=== PATIENT | male | born 1955 | race American Indian/Alaskan Native ===

== ENCOUNTER 2017-03-06 10:01 | Observation (INO) | payer MEDICARE ==
[~2017-03-06 10:01] MED LIST: OMNIPAQUE 300 MG/50 ML (CATH LAB) IV ONE
[2017-03-06] MEDS ORDERED: DIPRIVAN 10 MG/ML IV ONE ×2 (10:38→12:50)
[2017-03-06] MEDS ORDERED: ROBINUL ONE (11:04)
[2017-03-06] MEDS ORDERED: VERSED ONE (11:18)
[2017-03-06] MEDS ORDERED: PEPCID ONE (11:19)
[2017-03-06] MEDS ORDERED: NACL 0.9% 1000 ML 1,000 ML ONE ×2 (11:20→12:49)
--- NOTE | 2017-03-06 11:20 | Anesthesia Consultation ---
Anesthesia Consult and Med Hx Date of service: 03/06/17 - Airway Anesthetic Teeth Evaluation: Poor (very poor dentition, front lower many loose teeth) ROM Head & Neck: Inadequate Mental/Hyoid Distance: Adequate Mallampati Class: Class II Intubation Access Assessment: Probably Good - Pulmonary Exam CTA: Yes - Cardiac Exam Cardiac Exam: RRR - Pre-Operative Health Status ASA Pre-Surgery Classification: ASA3 Proposed Anesthetic Plan: General - Pulmonary Hx Smoking: Yes COPD: Yes Hx Sleep Apnea: No - Cardiovascular System Hx Hypertension: No Hx Peripheral Vascular Disease: Yes - Central Nervous System Hx Psychiatric Problems: Yes (depression) - Gastrointestinal Hx Gastroesophageal Reflux Disease: No - Endocrine Hx Renal Disease: No Hx Insulin Dependent Diabetes: No - Hematic Hx Anemia: No Hx Sickle Cell Disease: No - Other Systems Hx Alcohol Use: No Hx Substance Use: Yes (marijuana every other day) Hx Cancer: Yes (prostate) Hx Obesity: No - Additional Comments Anesthesia Medical History Comments: Patient is aware of the possibility of loose teeth being dislodged. Erectile dysfunction.
--- NOTE | 2017-03-06 11:20 | Anesthesia Day of Surgery ---
Anesthesia Day of Surgery - Day of Surgery Patient Examined: Yes Patient H&P Reviewed: Yes Patient is NPO: Yes
[2017-03-06] MEDS ORDERED: PEPCID PO NR (11:22)
[2017-03-06] MEDS ORDERED: VERSED IV NR (11:22)
[2017-03-06] MEDS ORDERED: ANCEF/STERILE WATER 2 GM/20 ML 2 GM/20 ML SYRINGE IV NR (12:00)
[2017-03-06] MEDS ORDERED: NACL 0.9% 1000 ML 1,000 ML IV SCH (12:00)
[2017-03-06] MEDS ORDERED: DECADRON ONE (12:22)
[2017-03-06] MEDS ORDERED: ZOFRAN ONE (12:22)
[2017-03-06] MEDS ORDERED: NEO SYNEPHRINE ONE (12:33)
[2017-03-06] MEDS ORDERED: NACL 0.9% 100 ML ONE (12:33)
[2017-03-06] MEDS ORDERED: DILAUDID ONE (12:53)
[2017-03-06] MEDS ORDERED: NORMODYNE IV ONE (12:54)
[2017-03-06] MEDS ORDERED: METHYLENE BLUE ONE (12:54)
[2017-03-06] MEDS ORDERED: PROAIR IH ONE (12:57)
[2017-03-06] MEDS ORDERED: LASIX ONE ×2 (13:21)
[2017-03-06] MEDS ORDERED: PROVENTIL IH ONE ×2 (13:27→14:55)
[2017-03-06] MEDS ORDERED: BREVIBLOC IV ONE (13:30)
[2017-03-06] MEDS ORDERED: NACL ONE (13:37)
--- NOTE | 2017-03-06 15:53 | Post Operative Note ---
Date of procedure: 03/06/17 Pre-op diagnosis: heme and l ureteral stones Post-op diagnosis: same Findings: very thick bladder wall very large prostate Procedure: cysto attempted stent Anesthesia: GETA Surgeon: SOLOMON BUI Estimated blood loss: minimal Pathology: none Condition: stable Disposition: PACU
[2017-03-06] MEDS ORDERED: ZOFRAN IV PRN (15:54)
[2017-03-06] MEDS ORDERED: AMBIEN PO PRN (15:54)
--- NOTE | 2017-03-06 16:09 | Operative Report ---
PREOPERATIVE DIAGNOSES: Hematuria, renal stones, elevated PSA, bladder outlet obstruction. POSTOPERATIVE DIAGNOSES: Hematuria, renal stones, elevated PSA, bladder outlet obstruction. PROCEDURE: Cystoscopy, attempted stenting, left side. SURGEON: Osman Ballard MD ANESTHESIA: General. FINDINGS: This is a gentleman with obstructing stone, elevated PSA, poorly compliant, previous prostate biopsies with hematuria, and left hydronephrosis, now presents for treatment. DESCRIPTION OF PROCEDURE: The patient was brought to the operating room and placed on the operating table. Following induction of anesthesia, placed in lithotomy position, prepped and draped in usual sterile fashion. Cystourethroscopy showed a very large median bar. Upon entering the bladder, there was diffuse oozing from the prostatic varices, could not see the trigone well, with very thickened bladder wall, very thickened trabeculation and cellules. We could not see the orifice, could not get a catheter in the orifice. We gave him blue, but nothing came out. The patient tolerated the procedure well. We decided we did not want to traumatize the prostate anymore. We did not do any biopsy. There were no obvious masses, just very inflamed bladder and thickened trabeculation. He will go for a CT scan and I suspect he will need a percutaneous nephrostomy. JOB# [id number] VANGIE/MELVIN
--- NOTE | 2017-03-06 16:17 | Cat Scan Report ---
CT ABDOMEN AND PELVIS WITHOUT CONTRAST INDICATION: Postop. COMPARISON: None similar. FINDINGS: Noncontrast abdomen and pelvis CT performed. LUNG BASES: Mild bibasilar atelectasis. Air-filled distal esophageal wall prominence, not excluded for gastroesophageal reflux and/or hiatal hernia, amongst others. ABDOMEN: Please note that sensitivity to detect small visceral lesions is limited due to the absence of intravenous or oral contrast. However, severe left and moderate right hydronephrosis and hydroureter noted with maximum renal pelvis diameter of approximately 8.5 cm on the left and 3.8 cm on the right as on axial image 59, series 2. Bilateral mid ureteral caliber also approximately 1.5 cm as on axial image 106, amongst others, extending into the pelvis. Couple tiny right intrarenal calculi may be noted as on axial image 61 and some at the upper pole. Grossly unremarkable unenhanced liver, spleen, gallbladder, pancreas, adrenals, nonaneurysmal abdominal aorta with atherosclerotic calcifications and IVC. Nonopacified GI tract evaluation limited, though grossly nonobstructive. Mild colonic stool. Few descending colon diverticula. PELVIS: Urinary bladder decompressed by an indwelling Segura catheter with some intrinsic air and contrast from the cystogram. Diffuse extensive urinary bladder wall thickening, though may in part be due to suboptimal distention. Soft tissue at the bladder base may be related to an enlarged prostate. Few small pelvic phleboliths. Multiple left distal ureteral calculi noted, individually measuring to the order of 7-8 mm, though their aggregated measurement is 1.5 x 1.2 cm, axial image 130, series 2. Few similar further distal calculi at the left ureterovesical junction also noted, measuring approximately 1 x 0.5 cm, axial image 136 and approximately 0.8 cm, axial image 141. Unremarkable rectosigmoid. Low lying/slightly herniated nonobstructive small bowel along proximal aspect of both inguinal canal extents, axial images 144-155, series 2. Bilateral SI joint degenerative bridging osteophytes with obliterated joint space superiorly. Mild multilevel lumbar degenerative spurring. CONCLUSION: 1. Severe left and moderate right hydroureteronephrosis, as detailed above. Multiple left distal ureteral calculi noted, as above. Tiny right intrarenal calculi may also be present. 2. Diffuse urinary bladder wall thickening. 3. Various other findings, including bibasilar atelectasis, diverticulosis, Segura catheter and nonobstructive small bowel along proximal inguinal canal extents, amongst others, as above. I discussed the above results with Dr. Ballard in person, 3:15 PM, 03/06/2017. Thank you for the opportunity to participate in this patient's care.
[2017-03-06 16:20] LABS: Basophils % (Auto) 0.4 % (0.0-1.8); Eosinophils % (Auto) 0.1 % (0.0-4.3); Hematocrit 42.6 % (35.5-45.6); Hemoglobin 13.7 gm/dl (11.8-15.2); Mean Corpuscular HGB Conc 32 % (32-34); Mean Corpuscular Hemoglobin 31 pg (28-32); Mean Corpuscular Volume 95 fl (84-94); Platelet Count 204 K/mm3 (140-440); Red Blood Count 4.48 M/mm3 (3.65-5.03); Red Cell Distribution Width 13.4 % (13.2-15.2); White Blood Count 13.2 K/mm3 (4.5-11.0)
[2017-03-06 16:31] LABS: INR 0.99 (0.87-1.13)
[2017-03-06 16:34] LABS: Alanine Aminotransferase 14 units/L (7-56); Albumin/Globulin Ratio 1.8 %; Alkaline Phosphatase 57 units/L (35-129); Anion Gap 18 mmol/L; BUN/Creatinine Ratio 16; Blood Urea Nitrogen 11 mg/dL (9-20); Calcium 8.4 mg/dL (8.4-10.2); Carbon Dioxide 23 mmol/L (22-30); Chloride 110.7 mmol/L (98-107); Glucose 89 mg/dL (75-100); Potassium 4.8 mmol/L (3.6-5.0); Sodium 147 mmol/L (137-145); Total Protein 6.2 g/dL (6.3-8.2)
[2017-03-06] MEDS ORDERED: NACL 0.9% 500 ML IR ONE (17:45)
[2017-03-06] MEDS ORDERED: NACL 0.9% 500 ML 0 ML ONE (17:46)
[2017-03-06] MEDS ORDERED: LEVAQUIN 500MG/100ML 500 MG/100 ML BAG IV ONE (17:46)
[2017-03-06] MEDS ORDERED: SUBLIMAZE ONE (17:46)
--- NOTE | 2017-03-06 17:49 | Post Anesthesia Evaluation ---
- Post Anesthesia Evaluation Patient Participated: Yes Airway Patent: Yes Stable Respiratory Function: Yes Nausea/Vomiting: No Temp > 96.8F: Yes Pain Manageable: Yes Adequeate Hydration: Yes Anesthesia Complications: No
[2017-03-06] MEDS: SUBLIMAZE ONE ×2 (18:21→18:35)
[2017-03-06] MEDS: VERSED ONE ×2 (18:22→18:35)
[2017-03-06] MEDS: XYLOCAINE 2% INFILTRATI ONE ×2 (18:23→18:36)
[2017-03-06] MEDS: D5W/0.45% NACL/KCL 20 MEQ 20 MEQ/1,000 ML BAG IV SCH (18:50)
--- NOTE | 2017-03-06 18:53 | Operative Report ---
Operative Report Operative Report: EXAM: ULTRASOUND AND FLUOROSCOPIC GUIDED PLACEMENT OF NEPHROSTOMY TUBE CLINICAL INDICATION: OBSTRUCTING LEFT HYDRONEPHROSIS DATE: 03/06/2017 PROCEDURE: Following an explanation of the risks, benefits and alternatives; written informed consent was obtained. The patient was brought to the angiographic suite and placed in prone position on the examination table. Initial ultrasound evaluation of the back demonstrated a dilated left renal collecting system. The patient's left back and flank were prepped and draped in the usual sterile fashion. 1% lidocaine was used for anesthesia. Under ultrasound guidance, a posterior middle calyx was cannulated with a 7 cm 21-gauge needle. A 0.018 guidewire was advanced into the proximal ureter under fluoroscopy. The needle was removed and a transition dilator placed over the guidewire. The 0.018 guidewire was exchanged for a 0.035 guidewire and the 0.035 guidewire advanced in the proximal ureter. Following serial dilation, an 8 Maltese nephrostomy tube was placed over the guidewire and advanced to coiled pigtail within the renal pelvis the guidewire was removed. Pigtail was performed in the renal pelvis. Contrast was injected through the catheter to document appropriate positioning and image say. The catheter was securely fastened of the skin surface using 2-0 Ethilon suture and a state 6 device. The catheter was then placed to dependent drainage. The patient tolerated the procedure well. There were no immediate post procedure complications. Conscious sedation was performed under the guidance of radiologic nursing. Continuous cardiopulmonary monitoring was utilized. IMPRESSION: 1) Ultrasound and fluoroscopic guided placement of a Maltese left nephrostomy tube
[2017-03-06] MEDS: NACL 0.9% IR SCH ×3 (20:00→22:25)
[2017-03-06] MEDS: ANCEF/NS 1 GM/50 ML 1 GM/50 ML BAG IV SCH (22:20)
[2017-03-07] MEDS: NACL 0.9% IR SCH ×3 (02:01→06:55)
[2017-03-07] MEDS: PERCOCET 5/325 PO PRN ×2 (03:27→10:56)
[2017-03-07] MEDS: D5W/0.45% NACL/KCL 20 MEQ 20 MEQ/1,000 ML BAG IV SCH ×2 (03:36→10:55)
[2017-03-07] MEDS: ANCEF/NS 1 GM/50 ML 1 GM/50 ML BAG IV SCH (08:30)
[2017-03-07 12:16] VITALS: BP 121/72
--- NOTE | 2017-03-07 13:45 | Progress Note ---
Subjective Date of service: 03/07/17 Interval history: Patiet is awake and alert. No anesthetic related complaints. Objective - Constitutional Vitals: Vital Signs - 12hr 03/07/17 03/07/17 03/07/17 03:27 05:27 05:28 Temperature 98.3 F Pulse Rate 68 67 Respiratory 17 20 Rate Blood Pressure 113/66 Blood Pressure [Left] O2 Sat by Pulse 98 98 Oximetry 03/07/17 03/07/17 03/07/17 07:05 07:06 10:56 Temperature 98.0 F Pulse Rate 63 60 Respiratory 18 0 L Rate Blood Pressure Blood Pressure 121/75 [Left] O2 Sat by Pulse 99 99 Oximetry 03/07/17 12:07 Temperature 98.3 F Pulse Rate 71 Respiratory 20 Rate Blood Pressure Blood Pressure 121/72 [Left] O2 Sat by Pulse 96 Oximetry - Labs CBC & Chem 7: 03/06/17 15:53 03/06/17 16:10 Labs: Abnormal lab results 03/06/17 03/06/17 Range/Units 15:53 16:10 WBC 13.2 H (4.5-11.0) K/mm3 MCV 95 H (84-94) fl Lymph % (Auto) 10.5 L (13.4-35.0) % Seg Neutrophils % 87.7 H (40.0-70.0) % Seg Neutrophils # 11.6 H (1.8-7.7) K/mm3 Sodium 147 H (137-145) mmol/L Chloride 110.7 H (98-107) mmol/L Creatinine 0.7 L (0.8-1.5) mg/dL Total Protein 6.2 L (6.3-8.2) g/dL
--- NOTE | 2017-03-07 13:49 | Progress Note ---
Assessment and Plan urine cleat home with ann and Clarisa ELIZABETH all clear feels much better suspect needs ureteroscopty after antegrade stent and prostatectomy all discussed feels and looks much better home health Subjective Date of service: 03/07/17 Principal diagnosis: ureteral stone severe bladder outlet obst Objective - Constitutional Vitals: Vital Signs - 12hr 03/07/17 03/07/17 03/07/17 03:27 05:27 05:28 Temperature 98.3 F Pulse Rate 68 67 Respiratory 17 20 Rate Blood Pressure 113/66 Blood Pressure [Left] O2 Sat by Pulse 98 98 Oximetry 03/07/17 03/07/17 03/07/17 07:05 07:06 10:56 Temperature 98.0 F Pulse Rate 63 60 Respiratory 18 0 L Rate Blood Pressure Blood Pressure 121/75 [Left] O2 Sat by Pulse 99 99 Oximetry 03/07/17 12:07 Temperature 98.3 F Pulse Rate 71 Respiratory 20 Rate Blood Pressure Blood Pressure 121/72 [Left] O2 Sat by Pulse 96 Oximetry General appearance: Present: no acute distress - Neck Neck: supple - Respiratory Respiratory effort: normal Extremities: no ischemia - Gastrointestinal General gastrointestinal: Present: soft, non-tender - Labs CBC & Chem 7: 03/06/17 15:53 03/06/17 16:10 Labs: Abnormal lab results 03/06/17 03/06/17 Range/Units 15:53 16:10 WBC 13.2 H (4.5-11.0) K/mm3 MCV 95 H (84-94) fl Lymph % (Auto) 10.5 L (13.4-35.0) % Seg Neutrophils % 87.7 H (40.0-70.0) % Seg Neutrophils # 11.6 H (1.8-7.7) K/mm3 Sodium 147 H (137-145) mmol/L Chloride 110.7 H (98-107) mmol/L Creatinine 0.7 L (0.8-1.5) mg/dL Total Protein 6.2 L (6.3-8.2) g/dL
--- NOTE | 2017-03-07 13:55 | Discharge Summary ---
Short Stay Discharge Plan Activity: other (no straing ) Weight Bearing Status: Full Weight Bearing Diet: regular Special Instructions: other (inc fluids ) Durable Medical Equipment Needed Upon Discharge: other (home with juarez and neph tube ) Follow up with: DR CRYSTAL [Other] - 7 Days SOLOMON BUI MD [Staff Physician] - 7 Days
--- NOTE | 2017-03-09 10:25 | Fluoroscopy Report ---
CYSTOGRAM STATIC, ONE VIEW History: Enlarged prostate gland, left ureteral stone. Description of procedure: Fluoroscopy was provided by radiology during cystogram and attempted retrograde pyelogram by urology. [employer] film of the abdomen is unremarkable. Only a small amount of contrast agent was injected into the bladder. There appears to be diverticulosis of the bladder. No gross bladder filling defect or extravasation. Retrograde pyelograms were not performed because the orifices could not be identified. Please correlate with the procedural report by Dr. Ballard. Impression: Limited views of the bladder. Diverticulosis is suspected.
== END 2017-03-07 16:00 | disposition home or self-care (01) ==
LOC: OR 10:01 → 3B-SURG 15:54
PROVIDERS: ADMIT Urology; ATTEND Urology
DX: N13.2 Hydronephrosis with renal and ureteral calculous obstruction (principal); N40.1 Benign prostatic hyperplasia with lower urinary tract symptoms; R97.20 Elevated prostate specific antigen [PSA]; I10 Essential (primary) hypertension; N39.0 Urinary tract infection, site not specified; N52.9 Male erectile dysfunction, unspecified; J44.9 Chronic obstructive pulmonary disease, unspecified; F32.9 Major depressive disorder, single episode, unspecified; Z71.3 Dietary counseling and surveillance; Z87.891 Personal history of nicotine dependence
CPT/HCPCS: 36415; 50432; 74176; 74430; 80053; 85025; 85610; 96365; A4217; C1726; C1729; C1758; C1769; G0378; J0690; J1100; J1170; J1940; J1956; J2250; J2370; J2405; J2704; J3010; J7030; Q9967; Q9968; J7040